=== PATIENT | male | born 1985 | race Caucasian/White ===

== ENCOUNTER 2017-06-11 21:39 | Emergency (ER) | payer SELFPAY ==
[2017-06-11 22:48] VITALS: BP 121/93; PULSE 83; O2SAT 99
[2017-06-11] MEDS ORDERED: CLEOCIN 150 MG CAPSULE PO ONE (22:57)
[2017-06-11] MEDS ORDERED: NORCO 5/325 MG PO ONE ×2 (22:57→22:58)
[2017-06-11] MEDS ORDERED: NORCO 5/325 MG ONE (23:02)
[2017-06-11] MEDS ORDERED: CLEOCIN 150 MG CAPSULE ONE (23:02)
--- NOTE | 2017-06-11 23:03 | ERPHSYRPT ---
- History of Present Illness Time Seen by Provider: 06/11/17 22:44 Source: patient Exam Limitations: no limitations Patient Subjective Stated Complaint: Swelling of bilateral ankles for the past 2 weeks, swelling does get worse but never goes away, denies injuring them Triage Nursing Assessment: Pt A&O x3, vitals wnl, complains of swollen bilateral ankles for the past couple of weeks, denies injuring them, rates pain of 7/10, bilateral edema +1, lungs clear, S1-S2 heard, no other complaints, doesn't appear to be in any distress Physician History: FOR THE PAST 2 WEEKS PT HAS HAD SWELLING OF THE LEGS/ANKLES; FOR THE PAST WEEK REDNESS OF THE LOWER LEGS. PAIN IN THE LEGS IS 7/10. PT DENIES SHORTNESS OF AIR , VOMITING, CHEST PAIN. Allergies/Adverse Reactions: No Known Drug Allergies Allergy (Verified 06/11/17 22:48) Home Medications: Gabapentin [Gabapentin] 600 mg PO BID 06/11/17 [History] Quetiapine Fumarate [Quetiapine Fumarate] 100 mg PO BID 06/11/17 [History] - Review of Systems Respiratory: No Dyspnea Cardiac: No Chest Pain Abdominal/Gastrointestinal: No Abdominal Pain, No Vomiting Musculoskeletal: Other (SWELLING, REDNESS AND PAIN IN LEGS/ANKLES) All Other Systems: Reviewed and Negative - Past Medical History Pertinent Past Medical History: Yes Neurological History: Epilepsy - Past Surgical History Past Surgical History: Yes Other Surgical History: facial reconstruction - Social History Smoking Status: Current every day smoker How long have you smoked: 10-15 year Drug Use: none Patient Lives Alone: No - Nursing Vital Signs Nursing Vital Signs: Initial Vital Signs Temperature 98.5 F 06/11/17 22:38 Pulse Rate 83 06/11/17 22:38 Blood Pressure 121/93 06/11/17 22:38 O2 Sat by Pulse Oximetry 99 06/11/17 22:38 Pain Scale Pain Intensity 7 - Physical Exam General Appearance: alert Eye Exam: PERRL/EOMI Ears, Nose, Throat Exam: TMs normal, pharynx normal, moist mucous membranes Neck Exam: normal inspection Respiratory Exam: lungs clear Cardiovascular Exam: normal heart sounds Gastrointestinal/Abdomen Exam: soft, normal bowel sounds Back Exam: normal range of motion Extremity Exam: swelling (MILD SWELLING AND FAINT ERYTHEMA OF LOWER LEGS.) Neurologic Exam: alert, cooperative Skin Exam: warm, dry SpO2 Interpretation: normal SpO2: 99 Oxygen Delivery: Room Air - Course Nursing assessment & vital signs reviewed: Yes Ordered Tests: Medication Summary Discontinued Medications Generic Name Dose Route Start Last Admin Trade Name Freq PRN Reason Stop Dose Admin Hydrocodone Bitart/Acetaminophen 2 tab 06/11/17 22:57 Wheeler 5/325 Mg PO 06/11/17 22:58 SENT HOME W/ PATIENT ONE Clindamycin HCl 300 mg 06/11/17 22:57 Cleocin 150 Mg Capsule PO 06/11/17 22:58 STAT ONE - Departure Time of Disposition: 23:05 Departure Disposition: Home Clinical Impression: CELLULITIS OF LOWER LEGS Condition: Stable Critical Care Time: No Instructions: Cellulitis (Skin Infection), Adult (DC) Additional Instructions: FOLLOW UP WITH PRIVATE DOCTOR TOMORROW. ELEVATE LEGS ABOVE HEART LEVEL FOR 24 HOURS. Prescriptions: Naproxen [Naprosyn] 500 mg PO Q12H PRN PRN #20 tablet PRN Reason: Pain Clindamycin HCl 300 mg PO Q6H #40 capsule
== END 2017-06-11 23:19 | disposition home or self-care (01) ==
LOC: ED 21:39
DX: L03.116 Cellulitis of left lower limb (principal); L03.115 Cellulitis of right lower limb; Z79.899 Other long term (current) drug therapy
CPT/HCPCS: 99282; 99283; A9270-GY

== ENCOUNTER 2018-01-10 11:36 | Emergency (ER) | payer OTHER ==
--- NOTE | 2018-01-10 12:20 | ERPHSYRPT ---
- History of Present Illness Time Seen by Provider: 01/10/18 12:00 Source: patient, family Patient Subjective Stated Complaint: Was on a 10 foot ladder and was approx 8 feet up and fell across a banister on his left lateral side of abdomen Triage Nursing Assessment: Pt states that he was putting up [place] lights and was on a 10 foot ladder when he fell off at approximately 8 feet up and landed on his left lateral side of abdomen on a banister, area has dark bruising that goes around to the back, reports that he hasn't been urinating as often, rates pain /, denies any other issues Physician History: 32 y/o white male presents with painful left flank and lower back after fall off of ladder 3 days ago. pt denies neck and head injury. no gross hematuria noted. Occurred: days ago (3) Reason for Fall: lost balance (on a ladder while putting up roger lights) Injuries/Pain Location: back Loss of Consciousness: no loss of consciousness Quality: aching Severity of Pain-Max: moderate Severity of Pain-Current: moderate Modifying Factors: Improves With: movement Associated Symptoms (Fall): back pain, muscle spasms, No abdominal pain, No confusion, No chest pain, No extremity injury, No headache, No lightheadedness, No nausea, No neck pain, No ringing in ears, No seizures, No shortness of breath , No slurred speech, No trouble walking, No vomiting, No vision changes Allergies/Adverse Reactions: amoxicillin [From Augmentin] Allergy (Verified 01/10/18 12:03) clavulanic acid [From Augmentin] Allergy (Verified 01/10/18 12:03) Home Medications: Gabapentin 600 mg PO BID 06/11/17 [History] Quetiapine Fumarate 100 mg PO BID 06/11/17 [History] Sertraline HCl [Zoloft] 25 mg PO DAILY 01/10/18 [History] Hx Tetanus, Diphtheria Vaccination/Date Given: No - Review of Systems Constitutional: No Symptoms Eyes: No Symptoms Ears, Nose, & Throat: No Symptoms Respiratory: No Symptoms Cardiac: No Symptoms Abdominal/Gastrointestinal: No Symptoms Genitourinary Symptoms: No Symptoms Musculoskeletal: Back Pain (left flank and lower back) Skin: Other (ecchymosis and tenderness left flank) Neurological: No Symptoms Psychological: No Symptoms Endocrine: No Symptoms Hematologic/Lymphatic: No Symptoms Immunological/Allergic: No Symptoms All Other Systems: Reviewed and Negative - Past Medical History Pertinent Past Medical History: Yes Neurological History: Epilepsy ENT History: No Pertinent History Cardiac History: No Pertinent History Respiratory History: No Pertinent History Endocrine Medical History: No Pertinent History Musculoskeletal History: No Pertinent History GI Medical History: No Pertinent History History: No Pertinent History Psycho-Social History: Depression - Past Surgical History Past Surgical History: Yes Neuro Surgical History: No Pertinent History Cardiac: No Pertinent History Respiratory: No Pertinent History Gastrointestinal: No Pertinent History Genitourinary: No Pertinent History Musculoskeletal: No Pertinent History Male Surgical History: No Pertinent History Other Surgical History: facial reconstruction - Social History Smoking Status: Current every day smoker How long have you smoked: 10-15 year Exposure to second hand smoke: Yes Drug Use: marijuana Patient Lives Alone: No Significant Family History: no pertinent family hx - Nursing Vital Signs Nursing Vital Signs: Initial Vital Signs Temperature 99.1 F 01/10/18 11:49 Pulse Rate 80 01/10/18 11:49 Blood Pressure 145/101 01/10/18 11:49 O2 Sat by Pulse Oximetry 98 01/10/18 11:49 Pain Scale Pain Intensity 0 - Autumn Coma Score Best Eye Response ([place]): (4) open spontaneously Best Verbal Response ([place]): (5) oriented Best Motor Response ([place]): (6) obeys commands [place] Total: 15 - Physical Exam General Appearance: mild distress, alert, anxiety Head Injury: no evidence of injury, No active bleeding, No Flores's Sign, No ecchymosis, No raccoon eyes Eye Exam: PERRL/EOMI, eyes nml inspection ENT Exam: airway nml, nml ext.inspection, No evidence of ENT injury, No dental injury Neck Exam: supple, trachea midline, full range of motion, normal alignment, normal inspection Respiratory/Chest Exam: normal breath sounds, No chest tenderness, No respiratory distress, No ecchymosis, No crepitus Cardiovascular Exam: normal heart sounds, regular rate/rhythm, normal peripheral pulses Gastrointestinal Exam: soft, normal bowel sounds, No tenderness, No guarding, No rebound Rectal Exam: not done Back Exam: normal range of motion, CVA tenderness (left with ecchymosis), muscle spasm (left lumbar) Extremity Exam: normal inspection, normal range of motion, capillary refill <3 sec, pelvis stable Neurologic Exam: alert, oriented x 3, cooperative, strap maker II-XII nml as tested, normal mood/affect Skin Exam: warm, dry, ecchymosis (as above left flank) SpO2: 98 Oxygen Delivery: Room Air Ordered Tests: Active Orders 24 hr Category Date Time Status Clean Catch Urine Specimen STAT Care 01/10/18 12:24 Active LUMBAR LIMITED (2 OR 3 VIEWS) Stat Exams 01/10/18 14:19 Completed PELVIS (1 OR 2 VIEWS) Stat Exams 01/10/18 14:19 Completed UA W/RFX UR CULTURE Stat Lab 01/10/18 Completed Lab/Rad Data: Laboratory Results 01/10/18 Range/Units Unknown Urine Color YELLOW (YELLOW) Urine Appearance CLEAR (CLEAR) Urine pH 5.0 (5-6) Ur Specific [place] 1.015 (1.005-1.025) Urine Protein NEGATIVE (Negative) Urine Ketones NEGATIVE (NEGATIVE) Urine Blood NEGATIVE (0-5) Sebastian/ul Urine Nitrite NEGATIVE (NEGATIVE) Urine Bilirubin NEGATIVE (NEGATIVE) Urine Urobilinogen NEGATIVE (0-1) mg/dL Ur Leukocyte Esterase TRACE (NEGATIVE) Urine WBC (Auto) 6-10 (0-5) /HPF Urine RBC (Auto) NONE (0-2) /HPF U Epithel Cells (Auto) NONE (FEW) /HPF Urine Bacteria (Auto) RARE (NEGATIVE) /HPF Urine Mucus (Auto) SLIGHT (NEGATIVE) /HPF Urine Culture Reflexed NO (NO) Urine Glucose NEGATIVE (NEGATIVE) mg/dL - Progress Progress: pain not gone completely, re-examined Progress Note: 01/10/18 15:06 xray of pelvis and lumbar spine-no acute process. Counseled pt/family regarding: lab results, diagnosis, need for follow-up, rad results - Departure Time of Disposition: 15:07 Departure Disposition: Home Clinical Impression: UTI (urinary tract infection), Contusion Condition: Stable Critical Care Time: No Referrals: DANIELLE CARTER DIRECTOR DATA PROCESSING [Primary Care Provider] - Additional Instructions: ice pack to bruised area. drink plenty of fluids. add ibuprofen 600mg orally 3 times daily with food. follow up with primary doctor for persistent symptoms Prescriptions: Hydrocodone/APAP 5/325 [Topmost 5/325 mg] 1 each PO Q8H PRN PRN #7 tablet MDD 3 PRN Reason: Pain Cephalexin Mh 500 mg [Keflex 500 mg] 500 mg PO TID #21 capsule
[2018-01-10 13:32] LABS: Appearance CLEAR (CLEAR); Bilirubin NEGATIVE (NEGATIVE); Blood NEGATIVE Ery/ul (0-5); Glucose NEGATIVE (NEGATIVE); Ketones NEGATIVE (NEGATIVE); Leukocyte Esterase TRACE (NEGATIVE); Nitrite NEGATIVE (NEGATIVE); Protein,Urine Dip NEGATIVE (Negative); Specific Gravity 1.015 (1.005-1.025); Urobilinogen NEGATIVE mg/dL (0-1)
--- NOTE | 2018-01-10 14:53 | XRAY ---
Exam: AP film of pelvis from 01/10/2018. Comparison: None. Indication: Patient fell 8 feet from a ladder this past Monday, complains of pain, no history of prior surgery within the pelvis or back. Findings: I see no evidence of acute fracture within the pelvis. Both pubic rings appear intact. A metallic, U-shaped, ornamental ring is seen projected over the distal aspect of the penis. The sacroiliac joints and hip joint spaces appear unremarkable. The visualized bowel gas pattern is unremarkable. Impression: 1. No evidence of acute fracture or dislocation of the pelvis is seen.
--- NOTE | 2018-01-10 15:01 | XRAY ---
Exam: 3 view lumbar spine series from 01/10/2018. Comparison: None. Indication: 32-year-old male fell 8 feet from a ladder on Monday, complains of pain, no history of prior surgery within the lumbar spine. Findings: AP, lateral, and a coned-down lateral film of the lumbosacral junction were obtained. There are 5 [id number] lumbar-type vertebra. I see no acute lumbar spine fracture or AP subluxation. There is minimal narrowing of the anterior aspect of the L2-L3 interspace height associated with moderate anterior vertebral endplate spurring at L2-L3. This appears chronic. There is slight loss of the anterior vertebral body height of L1 which I also believe is chronic or developmental. No contour irregularity of the cortex is seen. There is some straightening of the upper and mid lumbar spine. This is nonspecific. Consider spasm. The visualized portions of the sacroiliac joints appear unremarkable. The visualized bowel gas pattern is unremarkable. Impression: 1. No acute lumbar spine fracture or AP traumatic subluxation is seen. 2. Slight loss of the anterior vertebral body height of L1 which I believe is old/chronic. 3. Minimal narrowing of the anterior aspect of the L2-L3 interspace height associated with moderate anterior vertebral endplate spurring at L2-L3. I believe this is also chronic/old. 4. There is some straightening of the upper and mid lumbar spine on the lateral images. This is nonspecific. Correlate clinically regarding paravertebral muscular spasm.
[2018-01-10 15:10] VITALS: O2SAT 98
[2018-01-10] MEDS ORDERED: NORCO 5/325 MG PO ONE (15:10)
[2018-01-10] MEDS ORDERED: NORCO 5/325 MG ONE (15:14)
[2018-01-10 15:17] VITALS: BP 125/93; PULSE 75
== END 2018-01-10 15:22 | disposition home or self-care (01) ==
LOC: ED 11:36
DX: N39.0 Urinary tract infection, site not specified (principal); S30.1XXA Contusion of abdominal wall, initial encounter; M54.5 Low back pain; M62.838 Other muscle spasm; W11.XXXA Fall on and from ladder, initial encounter; Y93.89 Activity, other specified; Z79.899 Other long term (current) drug therapy
CPT/HCPCS: 72100; 72170; 81001; 99284; A9270-GY

== ENCOUNTER 2018-03-25 01:14 | Emergency (ER) | payer MEDICAID, OTHER ==
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
[2018-03-25] MEDS ORDERED: Adacel Vial IM ONE ×2 (01:46→04:07)
[2018-03-25] MEDS ORDERED: Zofran 4 MG/2 ML VIAL IV ONE (01:46)
[2018-03-25] MEDS ORDERED: Sodium Chloride 0.9% 1000 ML 1,000 ML IV STA (01:49)
[2018-03-25 02:23] LABS: Appearance SLIGHTLY CLOUDY (CLEAR); Bacteria MODERATE /HPF (NEGATIVE); Bilirubin NEGATIVE (NEGATIVE); Blood SMALL Ery/ul (0-5); Crystals Unidentified 25-50 /HPF (NEGATIVE); Glucose NEGATIVE (NEGATIVE); Hyaline Casts 0-2 /LPF (0-2); Ketones TRACE (NEGATIVE); Leukocyte Esterase MODERATE (NEGATIVE); Mucus SLIGHT /HPF (NEGATIVE); Nitrite NEGATIVE (NEGATIVE); Protein,Urine Dip NEGATIVE (Negative); Specific Gravity 1.016 (1.005-1.025); Urobilinogen NEGATIVE mg/dL (0-1); WBC 51-100 /HPF (0-5)
[2018-03-25 02:34] LABS: Barbiturate,Urine NEGATIVE (NEGATIVE); Benzodiazepine,Urine POSITIVE (NEGATIVE); Cocaine,Urine NEGATIVE (NEGATIVE); Methadone,Urine NEGATIVE (NEGATIVE); Opiate,Urine NEGATIVE (NEGATIVE); PCP,Urine NEGATIVE (NEGATIVE); THC,Urine POSITIVE (NEGATIVE)
[2018-03-25] MEDS ORDERED: Cipro 500 MG PO ONE (02:49)
[2018-03-25 03:41] LABS: Amphetamine,Urine POSITIVE (NEGATIVE)
[2018-03-25] MEDS ORDERED: Cipro 500 MG ONE (04:04)
[2018-03-25 04:14] VITALS: BP 108/71; PULSE 84; O2SAT 100
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
== END 2018-03-25 04:20 | disposition home or self-care (01) ==
LOC: ED 01:14
DX: S00.91XA Abrasion of unspecified part of head, initial encounter (principal); S00.81XA Abrasion of other part of head, initial encounter; V47.5XXA Car driver injured in collision with fixed or stationary object in traffic accident, initial encounter; F10.229 Alcohol dependence with intoxication, unspecified; F15.10 Other stimulant abuse, uncomplicated; N39.0 Urinary tract infection, site not specified; G40.909 Epilepsy, unspecified, not intractable, without status epilepticus; F32.9 Major depressive disorder, single episode, unspecified; R51 Headache; M54.2 Cervicalgia; M25.552 Pain in left hip; M25.551 Pain in right hip; M79.641 Pain in right hand; M79.651 Pain in right thigh
CPT/HCPCS: 70450; 70486; 72125; 73110; 73130; 73502; 73552; 80307; 81001; 87077; 87086; 87186; 90715; 93041; 99285; A9270-GY